=== PATIENT | female | born 1940 | race Caucasian/White ===

== ENCOUNTER 2020-06-08 00:39 | Inpatient (IN) | payer MEDICARE ==
[2020-06-08] MEDS ORDERED: MORPHINE SULFATE 4 MG/ML SYRINGE IM STA (00:59)
--- NOTE | 2020-06-08 01:07 | ED ---
Fall HPI - General Chief Complaint: Fall Stated Complaint: Fall Time Seen by Provider: 06/08/20 00:44 Source: EMS Mode of arrival: EMS Limitations: altered mental status - History of Present Illness Initial Comments: This patient is a 79-year-old woman who reportedly has history of dementia, transfer from her nursing facility after she reportedly had a fall. The patient is not able to provide any history due to what appears to be dementia. She reportedly had x-ray of the left femur at the retirement which showed a femoral neck fracture. Complaint: fall -: unknown When Fall Occurred: unsure Place Fall Occurred: retirement/SNF - Related Data Home Medications Medication Instructions Recorded Confirmed No Known Home Medications 12/17/14 12/17/14 Allergies Allergy/AdvReac Type Severity Reaction Status Date / Time No Known Allergies Allergy Verified 06/08/20 00:48 Review of Systems ROS Statement: Those systems with pertinent positive or pertinent negative responses have been documented in the HPI. ROS Other: All systems not noted in ROS Statement are negative. Constitutional: Denies: fever Respiratory: Denies: cough, dyspnea Gastrointestinal: Denies: vomiting Past Medical History Past Medical History: Dementia, Hyperlipidemia History of Any Multi-Drug Resistant Organisms: None Reported Additional Past Surgical History / Comment(s): MITRAL VALVE REPLACED Past Psychological History: No Psychological Hx Reported Smoking Status: Never smoker Past Alcohol Use History: None Reported Past Drug Use History: None Reported General Exam Limitations: no limitations General appearance: alert, in no apparent distress Head exam: Present: atraumatic, normocephalic Eye exam: Present: normal appearance, PERRL, EOMI. Absent: scleral icterus, conjunctival injection Neck exam: Present: normal inspection, full ROM. Absent: tenderness Respiratory exam: Present: normal lung sounds bilaterally. Absent: respiratory distress, wheezes, rales, rhonchi, stridor Cardiovascular Exam: Present: regular rate, normal rhythm, normal heart sounds. Absent: systolic murmur, diastolic murmur, rubs, gallop GI/Abdominal exam: Present: soft. Absent: distended, tenderness, guarding, rebound Extremities exam: Present: normal capillary refill. Absent: full ROM, pedal edema, calf tenderness Back exam: Present: normal inspection. Absent: CVA tenderness (R), CVA tenderness (L), vertebral tenderness Neurological exam: Present: alert Skin exam: Present: warm, dry, intact, normal color. Absent: rash Course Vital Signs 06/08/20 00:41 Temperature 97.8 F Pulse Rate 76 Respiratory 20 Rate Blood Pressure 144/93 O2 Sat by Pulse 97 Oximetry Medical Decision Making - EKG Data -: EKG Interpreted by Me EKG shows normal: axis (Normal), intervals (Normal), QRS complexes Rate: normal (Rate 77 bpm) Interpretation: nonspecific ST-T wave changes, other (The underlying rhythm appears to be trigeminy rate proximal 77 bpm) Disposition Clinical Impression: Fall, Closed left femoral fracture Disposition: ADMITTED IP TO THIS HOSP Condition: Fair Is patient prescribed a controlled substance at d/c from ED?: No Referrals: Earl Juan MD [Primary Care Provider] - 1-2 days
--- NOTE | 2020-06-08 01:28 | XR ---
EXAM: XR Chest, 1 View CLINICAL HISTORY: Fall TECHNIQUE: Frontal view of the chest. COMPARISON: Chest x-ray dated 12/17/2014 FINDINGS: Lungs: Hyperinflated lungs suggesting COPD. Pleural space: Unremarkable. Heart: Heart is prominent. Mediastinum: Unremarkable. Bones/joints: Unremarkable. Tubes, lines and devices: Single lead cardiac pacemaker/AICD. IMPRESSION: No acute findings in the chest.
--- NOTE | 2020-06-08 01:29 | XR ---
EXAM: XR Left Hip With Pelvis When Performed, 2 or 3 Views CLINICAL HISTORY: ITS.REASON XR Reason: fall TECHNIQUE: Two or three views of the left hip with pelvis when performed. COMPARISON: No relevant prior studies available. FINDINGS: Bones/joints: Acute impacted fracture of the left femoral neck. Soft tissues: Unremarkable. IMPRESSION: Acute impacted fracture of the left femoral neck.
[2020-06-08] MEDS ORDERED: NALOXONE 0.4 MG/ML 1 ML VIAL IV PRN ×2 (01:50→13:32)
[2020-06-08] MEDS ORDERED: MORPHINE SULFATE 4 MG/ML SYRINGE IV PRN (01:50)
[2020-06-08] MEDS ORDERED: ONDANSETRON 4 MG/2 ML VIAL IVP PRN (01:50)
[2020-06-08 02:04] LABS: Basophils % (A) 0 %; Eosinophils % (A) 0 %; HCT 41.3 % (34.0-46.0); HGB 13.8 gm/dL (11.4-16.0); Lymphocytes # (A) 1.4 k/uL (1.0-4.8); Lymphocytes % (A) 8 %; MCH 32.9 pg (25.0-35.0); MCHC 33.3 g/dL (31.0-37.0); MCV 98.5 fL (80.0-100.0); Mean Platelet Volume 8.6; Monocytes # (A) 0.7 k/uL (0-1.0); Monocytes % (A) 5 %; Neutrophils # (A) 13.9 k/uL (1.3-7.7); Neutrophils % (A) 86 %; Platelet Count 207 k/uL (150-450); RBC 4.19 m/uL (3.80-5.40); RDW 13.6 % (11.5-15.5); WBC 16.1 k/uL (3.8-10.6)
[2020-06-08] MEDS: FAMOTIDINE 20 MG/2 ML VIAL IV SCH ×2 (02:16→13:20)
[2020-06-08] MEDS: SODIUM CHLORIDE 0.9% 1,000 ML IV SCH ×4 (02:16→21:50)
[2020-06-08 02:17] LABS: Partial Thromboplastin Time 23.8 sec (22.0-30.0); Prothrombin Time 11.1 sec (9.0-12.0)
[2020-06-08 02:25] LABS: Calcium 9.3 mg/dL (8.4-10.2); Potassium 4.1 mmol/L (3.5-5.1)
--- NOTE | 2020-06-08 09:24 | P.HPOR ---
History of Present Illness H&P Date: 06/08/20 This is a 79 year-old female who is admitted for left hip fracture. Patient is seen and evaluated at bedside today. Patient's family is at bedside to give history as patient has dementia. Patient currently resides a [facility]. Per family, the patient normally uses a walker to ambulate. It is unsure how the patient fell. Per family, the patient has a pace maker and has a history of DVT/PE. The patient is not on any anti-coagulation. Patient's past medical history is significant for hyperlipidemia. Review of Systems ROS unobtainable: due to mental status Past Medical History Past Medical History: Dementia, Hyperlipidemia History of Any Multi-Drug Resistant Organisms: None Reported Additional Past Surgical History / Comment(s): MITRAL VALVE REPLACED Past Anesthesia/Blood Transfusion Reactions: No Reported Reaction Past Psychological History: No Psychological Hx Reported Smoking Status: Never smoker Past Alcohol Use History: None Reported Past Drug Use History: None Reported Medications and Allergies Home Medications Medication Instructions Recorded Confirmed Type Acetaminophen Tab [Tylenol Tab] 1,000 mg PO ONCE 06/08/20 06/08/20 History Aspirin EC [Ecotrin Low Dose] 81 mg PO HS 06/08/20 06/08/20 History Escitalopram [Lexapro] 5 mg PO DAILY 06/08/20 06/08/20 History Fiber Lax 625 mg PO BID 06/08/20 06/08/20 History Ibuprofen [Motrin Ib] 400 mg PO DAILY PRN 06/08/20 06/08/20 History LORazepam [Ativan] 0.5 mg PO BID 06/08/20 06/08/20 History Lansoprazole [Prevacid] 15 mg PO DAILY@0700 06/08/20 06/08/20 History Magnesium Hydroxide [Milk of 2,400 ml PO Q72H PRN 06/08/20 06/08/20 History Magnesia] QUEtiapine [SEROquel] 100 mg PO HS@199906/08/20 06/08/20 History Sennosides [Senna] 17.2 mg PO BID 06/08/20 06/08/20 History bisacodyL [Bisacodyl] 10 mg RECTAL DAILY PRN 06/08/20 06/08/20 History traZODone HCL 50 mg PO HS@199906/08/20 06/08/20 History Allergies Allergy/AdvReac Type Severity Reaction Status Date / Time No Known Allergies Allergy Verified 06/08/20 07:32 Physical Examination On exam patient is resting comfortably in bed in no acute distress. Patient has a history of dementia. The left lower extremity is shortened and externally rotated. Skin is intact. Calf is soft and nontender to palpation. Dorsalis pedis pulse is 2+. Exams of the right lower extremity, bilateral upper extremities, head and neck are within normal limits. Sensation intact. Neurovascular status and circulatory status are intact. Results X-rays of the left hip and pelvis are reviewed and reveal left femoral neck fracture. - Labs Labs: Abnormal Lab Results - Last 24 Hours (Table) 06/08/20 06/08/20 Range/Units 01:43 01:43 WBC 16.1 H (3.8-10.6) k/uL Neutrophils # 13.9 H (1.3-7.7) k/uL BUN 35 H (7-17) mg/dL Creatinine 1.11 H (0.52-1.04) mg/dL Glucose 122 H (74-99) mg/dL H & H 06/08/20 Range/Units 01:43 Hgb 13.8 (11.4-16.0) gm/dL Hct 41.3 (34.0-46.0) % Coagulation 06/08/20 Range/Units 01:43 INR 1.0 (<1.2) Result Diagrams: 06/08/20 01:43 06/08/20 01:43 Assessment and Plan (1) Closed left femoral fracture Current Visit: Yes Status: Acute Code(s): S72.92XA - UNSP FRACTURE OF LEFT FEMUR, INIT ENCNTR FOR CLOSED FRACTURE SNOMED Code(s): 56202089 (2) Fall Current Visit: Yes Status: Acute Code(s): W19.XXXA - UNSPECIFIED FALL, INITIAL ENCOUNTER SNOMED Code(s): 7231136 Plan: 1. Patient is to be NPO. 2. Continue pain control. 3. Appreciate input from medicine. 4. Planning for left hip hemiarthroplasty later today pending medical clearance and consent.
[2020-06-08 13:08] LABS: Appearance,Urine Cloudy (Clear); Bacteria,Urine Few /hpf; Bilirubin,Urine Negative (Negative); Blood,Urine Trace (Negative); Color,Urine Yellow; Glucose,Urine (UA) Negative (Negative); Ketones,Urine 1+ (Negative); Leukocyte Esterase,Urine Large (Negative); Mucus,Urine Rare /hpf; Nitrite,Urine Positive (Negative); Protein,Urine Trace (Negative); RBC,Urine 11 /hpf (0-5); Specific Gravity,Urine 1.019 (1.001-1.035); Squamous Epithelial Cell,Urine <1 /hpf (0-4); Urobilinogen,Urine <2.0 mg/dL (<2.0); WBC,Urine >182 /hpf (0-5)
[2020-06-08] MEDS ORDERED: HYDROcodone/APAP 5-325MG 1 EACH TAB PO PRN ×2 (13:32)
[2020-06-08] MEDS ORDERED: MAGNESIUM HYDROXIDE 2,400 MG/10 ML CUP PO PRN (13:32)
[2020-06-08] MEDS ORDERED: HYDROmorphone 0.5 MG/0.5 ML SYRINGE IVP PRN ×2 (13:32)
[2020-06-08] MEDS ORDERED: HYDROmorphone 0.2 MG/1 ML SYRINGE IVP PRN (13:32)
--- NOTE | 2020-06-08 13:59 | P.CRDCN ---
History of Present Illness Consult date: 06/08/20 History of present illness: CHIEF COMPLAINT: Cardiac clearance HISTORY OF PRESENT ILLNESS: This is a 79-year-old female with a past medical history significant for TIA, pulmonary emboli, COPD, dementia, mitral valve repair, and pacemaker insertion. Patient follows in the office with Dr. Feliz. We have been asked to see the patient in consultation for cardiac clearance. Patient is admitted to the hospital secondary to a left hip fracture. She is scheduled to undergo surgical intervention this afternoon. Patient examined this afternoon at the bedside. Patient's family member present and providing majority of HPI as patient has advanced dementia. Family member states that patient had a mitral valve repair more than 10 years ago. She states patient does not have a history of myocardial infarction, stenting or open heart surgery, or congestive heart failure. She states that the patient has not had any recent complaints of chest pain or shortness of breath. DIAGNOSTICS: EKG reveals sinus rhythm with PVCs Chest xray negative for acute process Laboratory data: WBC 16.1. Hemoglobin 13.8. Platelet count 207. Sodium 141. Potassium 4.1. BUN 35. Creatinine 1.11. Troponin negative 1. Current home cardiac medications include aspirin 81 mg daily REVIEW OF SYSTEMS: Unable to obtain the review of systems secondary to altered mental status PHYSICAL EXAM: VITAL SIGNS: Reviewed. GENERAL: Well-developed in no acute distress. HEENT: Head is normocephalic. Pupils are equal, round. Sclerae anicteric. Mucous membranes of the mouth are moist. Neck supple. No JVD or thyromegaly LUNGS: Respirations even and unlabored. Lungs essentially clear to auscultation bilaterally. HEART: Regular rate and rhythm. S1 and S2 heard. ABDOMEN: Soft. Nondistended. Nontender. EXTREMITIES: No clubbing or cyanosis. Peripheral pulses intact. 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 However they are no absolute contraindications to undergo surgery this afternoon. Recommend optimal blood pressure control and cautious fluid administration Further recommendations pending patient's course Nurse practitioner note has been reviewed by physician. Signing provider agrees with the documented findings, assessment, and plan of care. Past Medical History Past Medical History: COPD, Dementia, Deep Vein Thrombosis (DVT), Hyperlipidemia, Pulmonary Embolus (PE), Renal Disease Additional Past Medical History / Comment(s): [facility], never had symptoms. History of Any Multi-Drug Resistant Organisms: None Reported Past Surgical History: Pacemaker Additional Past Surgical History / Comment(s): MITRAL VALVE Repair, Past Anesthesia/Blood Transfusion Reactions: No Reported Reaction Type of Cardiac Device: Permanent Pacemaker Device Placement Date:: daughter is guessing "about 4 years ago" Past Psychological History: No Psychological Hx Reported Smoking Status: Never smoker Past Alcohol Use History: None Reported Past Drug Use History: None Reported Medications and Allergies Home Medications Medication Instructions Recorded Confirmed Type Acetaminophen Tab [Tylenol Tab] 1,000 mg PO ONCE 06/08/20 06/08/20 History Aspirin EC [Ecotrin Low Dose] 81 mg PO HS 06/08/20 06/08/20 History Escitalopram [Lexapro] 5 mg PO DAILY 06/08/20 06/08/20 History Fiber Lax 625 mg PO BID 06/08/20 06/08/20 History Ibuprofen [Motrin Ib] 400 mg PO DAILY PRN 06/08/20 06/08/20 History LORazepam [Ativan] 0.5 mg PO BID 06/08/20 06/08/20 History Lansoprazole [Prevacid] 15 mg PO DAILY@0700 06/08/20 06/08/20 History Magnesium Hydroxide [Milk of 2,400 ml PO Q72H PRN 06/08/20 06/08/20 History Magnesia] QUEtiapine [SEROquel] 100 mg PO HS@199906/08/20 06/08/20 History Sennosides [Senna] 17.2 mg PO BID 06/08/20 06/08/20 History bisacodyL [Bisacodyl] 10 mg RECTAL DAILY PRN 06/08/20 06/08/20 History traZODone HCL 50 mg PO HS@199906/08/20 06/08/20 History Allergies Allergy/AdvReac Type Severity Reaction Status Date / Time No Known Allergies Allergy Verified 06/08/20 07:32 Physical Exam Vitals: Vital Signs Temp Pulse Pulse Resp BP BP Pulse Ox 06/08/20 07:48 97.1 F L 80 16 163/97 92 L 06/08/20 02:45 97.1 F L 79 18 160/98 93 L 06/08/20 02:20 97.9 F 65 20 147/92 97 06/08/20 00:41 97.8 F 76 20 144/93 97 Intake and Output 06/07/20 06/08/20 06/08/20 22:59 06:59 14:59 Other: # Voids 1 Weight 79.379 kg Results 06/08/20 01:43 06/08/20 01:43 Cardiac Enzymes 06/08/20 Range/Units 01:43 Troponin I 0.016 (0.000-0.034) ng/mL Coagulation 06/08/20 Range/Units 01:43 PT 11.1 (9.0-12.0) sec APTT 23.8 (22.0-30.0) sec CBC 06/08/20 Range/Units 01:43 WBC 16.1 H (3.8-10.6) k/uL RBC 4.19 (3.80-5.40) m/uL Hgb 13.8 (11.4-16.0) gm/dL Hct 41.3 (34.0-46.0) % Plt Count 207 (150-450) k/uL Comprehensive Metabolic Panel 06/08/20 Range/Units 01:43 Sodium 141 (137-145) mmol/L Potassium 4.1 (3.5-5.1) mmol/L Chloride 105 (98-107) mmol/L Carbon Dioxide 27 (22-30) mmol/L BUN 35 H (7-17) mg/dL Creatinine 1.11 H (0.52-1.04) mg/dL Glucose 122 H (74-99) mg/dL Calcium 9.3 (8.4-10.2) mg/dL Current Medications Generic Name Dose Route Start Last Admin Trade Name Freq PRN Reason Stop Dose Admin Famotidine 20 mg 06/08/20 02:00 06/08/20 13:20 Famotidine 20 Mg/2 Ml Vial IV 20 mg Q12H CHARMAINE Administration Sodium Chloride 1,000 mls @ 125 mls/hr 06/08/20 02:00 06/08/20 10:10 Saline 0.9% IV 125 mls/hr .Q8H CHARMAINE Administration Morphine Sulfate 4 mg 06/08/20 01:50 Morphine Sulfate 4 Mg/Ml Syringe IV Q4HR PRN Severe Pain Naloxone HCl 0.2 mg 06/08/20 01:50 Naloxone 0.4 Mg/Ml 1 Ml Vial IV Q2M PRN Opioid Reversal Ondansetron HCl 4 mg 06/08/20 01:50 Ondansetron 4 Mg/2 Ml Vial IVP Q8HR PRN Nausea And Vomiting Intake and Output 06/07/20 06/08/20 06/08/20 22:59 06:59 14:59 Other: # Voids 1 Weight 79.379 kg 06/08/20 01:43 06/08/20 01:43
[2020-06-08] MEDS ORDERED: IV FLUID CONTINUATION 1,000 ML IV ONE (14:05)
--- NOTE | 2020-06-08 15:11 | P.PN ---
Progress Note - Text Progress Note Date: 06/08/20 The patient will be full code during surgery, and then return to her status after surgery
[2020-06-08] MEDS ORDERED: ROCURONIUM 10 MG/ML (10 ML VIAL) IV ONE (15:13)
[2020-06-08] MEDS ORDERED: SUCCINYLCHOLINE CHLORIDE 100 MG/5 ML SYR IV ONE (15:13)
[2020-06-08] MEDS ORDERED: fentaNYL (PF) 50 MCG/ML 2 ML AMP ONE (15:13)
[2020-06-08] MEDS ORDERED: PROPOFOL 10 MG/ML 20 ML VIAL IV ONE (15:13)
[2020-06-08] MEDS ORDERED: GLYCOPYRROLATE 0.2 MG/ML 2 ML VIAL ONE (15:13)
[2020-06-08] MEDS ORDERED: DEXAMETHASONE SOD PHOSPHATE 10 MG/ML 1 ML VIAL ONE (15:13)
[2020-06-08] MEDS ORDERED: NEOSTIGMINE 1 MG/ML 10 ML VIAL ONE (15:13)
[2020-06-08] MEDS ORDERED: ceFAZolin 3,000 MG in SODIUM CHLORIDE 0.9% IRRIGATIO 3,000 ML IRRIGATION ONE (15:56)
--- NOTE | 2020-06-08 16:23 | P.OP ---
Date of Procedure: 06/08/20 Preoperative Diagnosis: Subcapital fracture left hip Postoperative Diagnosis: Subcapital fracture left hip Procedure(s) Performed: Left hip hemiarthroplasty Implants: Wall and nephew Polarstem size 2 standard Wall & Nephew tandem unipolar,43 mm Wall & Nephew tandem unipolar 12/14 taper sleeve, +0 mm All components were press-fit. Anesthesia: spinal Surgeon: Chris Campbell Hammer Fitter #1: Dominique Fitzgerald Estimated Blood Loss (ml): 50 Pathology: other (Femoral head) Condition: stable Disposition: PACU Indications for Procedure: This is a 79-year-old female resides an extended care facility and fell yesterday. She sustained a subcapital displaced fracture of her left hip. After discussing the surgical nonsurgical treatment options with her daughter at length, I recommended a left hip hemiarthroplasty and informed consent was obtained. Operative Findings: The operative findings are consistent with a subcapital fracture of the left hip Description of Procedure: Patient was seen and evaluated in the preoperative area, consent was reviewed and the operative site was marked with a skin marker. Patient was then brought to the operating room and given 2 g of Ancef intravenously. A spinal anesthetic was administered by the anesthesia department. Patient was then placed in a lateral decubitus position and held with a Montral hip positioner. The bony prominences were well-padded and an axillary roll was placed. The hip was then prepped and draped in the usual sterile fashion. A universal timeout was then performed which confirmed the patient's name, surgical site, ALLERGIES, and procedure. A standard anterolateral approach the hip was performed. Skin and subcutaneous tissues were sharply incised with an incision centered over the tip of the greater trochanter. The incision was carefully dissected down to the fascia. The fascia was then split in line with skin incision and a Charnley retractor was gently placed. The abductors were then identified, and the anterior one third of the abductors were released off the trochanter and one large sleeve. The fracture hematoma was evacuated and the proximal femur was exposed by externally rotating the femur. The fracture site was readily visualized. Next, using an osteotomy guide, the proximal femur was osteotomized at the appropriate level of the above the lesser trochanter. This bone was then removed. Attention was then turned to the femoral head. Using a corkscrew, the femoral head was removed from the acetabulum without incident. The acetabulum was inspected, and found to have no significant arthrosis. Femoral head was then measured. Attention was then redirected to the femur. Proximal femur was re-exposed and a box osteotome was used to lateralize the proximal femur. A sail finisher hand was then used to locate the femoral canal. Sequential broaching was then performed to the appropriate size. The calcar was then planed and trial head and neck were placed. The hip was then gently reduced. Leg lengths were checked and found to be equal. Hip was then taken through a full range of motion was stable throughout. The hip was then gently dislocated with the aid of a bone hook. The trial head and neck were then removed. The femoral broach was then inspected and found to have a secure fit. The broach was then removed. The hip was then copiously irrigated with antibiotic solution with a pulse lavage. Components were then opened and the femoral stem was then impacted into the proximal femur. The trunnion was cleaned and dried, and the femoral head and neck were then impacted. Hip was again gently reduced. Again leg lengths were checked and found to be equal, and the hip was taken through a full range of motion and found to be stable. The hip was again irrigated with pulsatile lavage, then followed by the Irrrisept solution. The abductors were then repaired through drill holes to the bone to the greater trochanter, utilizing #5 Ethibond suture. Next the fascia was repaired with #2 strata fix suture. The subcutaneous tissue was then repaired with 3-0 Vicryl. The subcuticular tissue was then repaired with 3-0 strata fix suture. Skin was then closed with Dermabond tape. A sterile dressing was then applied and the patient was transported to the recovery room in stable condition. Hammer Fitter JOYA Garcia was required due to the complexity of surgery the need for skilled surgical instruments inspector. She assisted with positioning the patient, draping the patient, retraction during the surgery, and closure of the wound.
[2020-06-08] MEDS ORDERED: LACTATED RINGERS 1,000 ML IV ONE (16:24)
--- NOTE | 2020-06-08 17:52 | XR ---
EXAMINATION TYPE: XR Hip Limited LT DATE OF EXAM: 06/08/2020 COMPARISON: Today HISTORY: Postop TECHNIQUE: FINDINGS: A single view shows a new left hip prosthesis. Components are in anatomic position. IMPRESSION: No complicating process seen.
--- NOTE | 2020-06-08 18:57 | CONS ---
CONSULTATION Cardiac clearance. This is a 79-year-old with a history of TIA, pulmonary emboli, COPD, dementia, mitral valve repair, pacemaker insertion, follows with Dr. Feliz in the office cardiac clearance. EKG showed multiple PVCs, at which time Cardiology needed to see her for clearance. She does not have any history of myocardial infarction, stenting or open heart surgery, congestive heart failure. No recent complaints of chest pain or shortness of breath. EKG shows sinus rhythm, PVCs. LABS: White count 16.1, hemoglobin 13.8, platelets 207. Sodium 141, potassium 4.1, creatinine 1.11. Troponins are negative. She takes aspirin at home. Fourteen-point review of systems otherwise negative. HEENT: Normocephalic, atraumatic. No acute distress. Lungs are clear. HEART: S1, S2. Abdomen is soft, nontender. EXTREMITIES: No cyanosis, clubbing, edema. NEUROLOGIC: Sleepy, fatigued. ASSESSMENT: 1. Status post left hip fracture. 2. Advanced dementia. 3. Bradycardia and intermittent episodes of third-degree heart block, status post single-chamber pacemaker insertion in 2014. 4. History of pulmonary embolism. 5. Transient ischemic attack. 6. Mitral valve repair. Pacemaker interrogation reviewed and unremarkable. Per Cardiology, echo is going to be done. Moderate to high risk for surgery. No absolute contraindication. She is going to go for surgery apparently today. Please see further orders. Await postoperative conditions. MMODL / IJN: [id number] /
[2020-06-08 20:41] LABS: Basophils % (A) 0 %; Eosinophils # (A) 0.1 k/uL (0-0.7); Eosinophils % (A) 1 %; HCT 43.8 % (34.0-46.0); HGB 14.2 gm/dL (11.4-16.0); Lymphocytes # (A) 0.5 k/uL (1.0-4.8); Lymphocytes % (A) 3 %; MCH 32.4 pg (25.0-35.0); MCHC 32.4 g/dL (31.0-37.0); MCV 99.8 fL (80.0-100.0); Mean Platelet Volume 8.3; Monocytes # (A) 0.2 k/uL (0-1.0); Monocytes % (A) 1 %; Neutrophils # (A) 16.7 k/uL (1.3-7.7); Neutrophils % (A) 95 %; Platelet Count 179 k/uL (150-450); RBC 4.39 m/uL (3.80-5.40); RDW 13.6 % (11.5-15.5); WBC 17.6 k/uL (3.8-10.6)
[2020-06-08] MEDS: SENNOSIDES-DOCUSATE SODIUM 1 EACH TAB PO SCH (21:45)
[2020-06-09] MEDS: SODIUM CHLORIDE 0.9% 1,000 ML IV SCH ×3 (04:35→15:40)
--- NOTE | 2020-06-09 08:10 | P.PN ---
Subjective Progress Note Date: 06/09/20 This is a 79-year-old female who is status post left hip hemiarthroplasty. This is postoperative day #1 and patient is seen and evaluated at bedside. Patient has a history of dementia and is unable to answer questions. No family present in the room. No acute events overnight per nursing. Objective - Vital Signs Vital signs: Vital Signs Temp 99.0 F 06/09/20 07:33 Pulse 76 06/09/20 07:33 Resp 16 06/09/20 07:33 BP 158/81 06/09/20 07:33 Pulse Ox 98 06/09/20 07:33 Intake & Output 06/08/20 06/09/20 06/09/20 18:59 06:59 18:59 Intake Total 1351 830 Output Total 60 400 Balance 1291 430 Weight 79.379 kg Intake: IV 1351 Intake, IV Titration 830 Amount Sodium Chloride 0.9% 1, 780 000 ml @ 65 mls/hr IV . [id number] CHARMAINE Rx#:[id number] ceFAZolin 2 gm In Sodium 50 Chloride 0.9% 50 ml @ 100 mls/hr IVPB Q8HR CHARMAINE Rx# :[id number] Oral 0 Output: Urine 10 400 Estimated Blood Loss 50 - Exam Vital signs are stable. Patient is in no acute distress. Calf is soft and nontender to palpation. Abductor pillow in place. Dressing is clean, dry, and intact. Neurovascular status and circulatory status are intact. - Labs CBC & Chem 7: 06/08/20 20:32 06/08/20 01:43 Labs: Abnormal Lab Results - Last 24 Hours (Table) 06/08/20 06/08/20 Range/Units 12:53 20:32 WBC 17.6 H (3.8-10.6) k/uL Neutrophils # 16.7 H (1.3-7.7) k/uL Lymphocytes # 0.5 L (1.0-4.8) k/uL Urine Appearance Cloudy H (Clear) Urine Protein Trace H (Negative) Urine Ketones 1+ H (Negative) Urine Blood Trace H (Negative) Urine Nitrite Positive H (Negative) Ur Leukocyte Esterase Large H (Negative) Urine RBC 11 H (0-5) /hpf Urine WBC >182 H (0-5) /hpf Urine Bacteria Few H (None) /hpf Urine Mucus Rare H (None) /hpf Microbiology - Last 24 Hours (Table) 06/08/20 12:53 Urine Culture - Preliminary Urine,Clean Catch Assessment and Plan (1) Closed left femoral fracture Current Visit: Yes Status: Acute Code(s): S72.92XA - UNSP FRACTURE OF LEFT FEMUR, INIT ENCNTR FOR CLOSED FRACTURE SNOMED Code(s): 92855516 (2) Fall Current Visit: Yes Status: Acute Code(s): W19.XXXA - UNSPECIFIED FALL, INITIAL ENCOUNTER SNOMED Code(s): 0590446 (3) S/P hip hemiarthroplasty Current Visit: Yes Status: Acute Code(s): Z96.649 - PRESENCE OF UNSPECIFIED ARTIFICIAL HIP JOINT SNOMED Code(s): 257751891 Plan: Continue routine postop care and pain control. Continue hip dislocation precautions and use of abductor pillow for 6 weeks. Continue anticoagulation with Eliquis. Weightbearing as tolerated with a walker. Leave dressing in place for 10 days. Appreciate input from medicine. Anticipate discharge back to [facility] when cleared medically.
[2020-06-09] MEDS ORDERED: traMADol 50 MG TAB PO PRN ×2 (08:12)
[2020-06-09] MEDS: APIXABAN 2.5 MG TABLET PO SCH ×2 (08:23→20:48)
[2020-06-09] MEDS ORDERED: ASPIRIN 81 MG PO SCH (09:00)
--- NOTE | 2020-06-09 10:08 | P.PN ---
Subjective Progress Note Date: 06/09/20 CHIEF COMPLAINT: Cardiac clearance HISTORY OF PRESENT ILLNESS: 06/08/2020 This is a 79-year-old female with a past medical history significant for TIA, pulmonary emboli, COPD, dementia, mitral valve repair, and pacemaker insertion. Patient follows in the office with Dr. Feliz. We have been asked to see the patient in consultation for cardiac clearance. Patient is admitted to the hospital secondary to a left hip fracture. She is scheduled to undergo surgical intervention this afternoon. Patient examined this afternoon at the bedside. Patient's family member present and providing majority of HPI as patient has advanced dementia. Family member states that patient had a mitral valve repair more than 10 years ago. She states patient does not have a history of myocardial infarction, stenting or open heart surgery, or congestive heart failure. She states that the patient has not had any recent complaints of chest pain or shortness of breath. 06/09/2020 Patient is s/p left hemiarthroplasty by Dr. Campbell. Postoperative day #1. Patient examined this morning at the bedside. Patient appears more awake today compared to yesterday. Patient is resting comfortably in bed. Nursing reports that the patient did well overnight without any issues. Blood pressure 158/81 this morning. Heart rate in the 70s. She is on 3 L nasal cannula with oxygen saturations greater than 92%. PHYSICAL EXAM: VITAL SIGNS: Reviewed. GENERAL: Well-developed in no acute distress. HEENT: Head is normocephalic. Pupils are equal, round. Sclerae anicteric. Mucous membranes of the mouth are moist. Neck supple. No JVD or thyromegaly LUNGS: Respirations even and unlabored. Lungs essentially clear to auscultation bilaterally. HEART: Regular rate and rhythm. S1 and S2 heard. EXTREMITIES: No clubbing or cyanosis. Peripheral pulses intact. No lower extremity edema. Dressing to left hip clean dry and intact. ASSESSMENT: Left hip fracture, status post left hemiarthroplasty Advanced dementia History of bradycardia and intermittent episodes of third-degree heart block, status post single chamber pacemaker insertion, 2014 History of pulmonary embolism History of TIA History of mitral valve repair PLAN: 2-D echo ordered. Await results Patient has been started on anticoagulation with Eliquis per orthopedics Patient is currently stable from a cardiac perspective for discharge when cleared by internal medicine and orthopedics Nurse practitioner note has been reviewed by physician. Signing provider agrees with the documented findings, assessment, and plan of care. Objective - Vital Signs Vital signs: Vital Signs Temp 99.0 F 06/09/20 07:33 Pulse 76 06/09/20 07:33 Resp 16 06/09/20 07:33 BP 158/81 06/09/20 07:33 Pulse Ox 98 06/09/20 07:33 Intake & Output 06/08/20 06/09/20 06/09/20 18:59 06:59 18:59 Intake Total 1351 830 Output Total 60 400 Balance 1291 430 Weight 79.379 kg Intake: IV 1351 Intake, IV Titration 830 Amount Sodium Chloride 0.9% 1, 780 000 ml @ 65 mls/hr IV . [id number] CHARMAINE Rx#:[id number] ceFAZolin 2 gm In Sodium 50 Chloride 0.9% 50 ml @ 100 mls/hr IVPB Q8HR CHARMAINE Rx# :[id number] Oral 0 Output: Urine 10 400 Estimated Blood Loss 50 Other: Voiding Method Indwelling Catheter - Labs CBC & Chem 7: 06/08/20 20:32 06/08/20 01:43 Labs: Abnormal Lab Results - Last 24 Hours (Table) 06/08/20 06/08/20 Range/Units 12:53 20:32 WBC 17.6 H (3.8-10.6) k/uL Neutrophils # 16.7 H (1.3-7.7) k/uL Lymphocytes # 0.5 L (1.0-4.8) k/uL Urine Appearance Cloudy H (Clear) Urine Protein Trace H (Negative) Urine Ketones 1+ H (Negative) Urine Blood Trace H (Negative) Urine Nitrite Positive H (Negative) Ur Leukocyte Esterase Large H (Negative) Urine RBC 11 H (0-5) /hpf Urine WBC >182 H (0-5) /hpf Urine Bacteria Few H (None) /hpf Urine Mucus Rare H (None) /hpf Microbiology - Last 24 Hours (Table) 06/08/20 12:53 Urine Culture - Preliminary Urine,Clean Catch
[2020-06-09] MEDS: ESCITALOPRAM 5 MG TAB PO SCH (11:28)
[2020-06-09] MEDS: SENNOSIDES 8.6 MG TAB PO SCH ×2 (11:39→20:57)
[2020-06-09] MEDS: PANTOPRAZOLE 40 MG TABLET PO SCH (11:39)
--- NOTE | 2020-06-09 11:48 | ECHOF ---
Referral Reason:LV function MEASUREMENTS -------- HEIGHT: 170.2 cm WEIGHT: 79.4 kg BP: RVIDd: 2.3 cm (< 3.3) IVSd: 1.0 cm (0.6 - 1.1) LVIDd: 2.9 cm (3.9 - 5.3) LVPWd: 1.5 cm (0.6 - 1.1) IVSs: 1.2 cm LVIDs: 2.7 cm LVPWs: 1.7 cm Ao Diam: 3.3 cm (2.0 - 3.7) AV Cusp: 1.9 cm (1.5 - 2.6) MV EXCURSION: 14.967 mm (> 18.000) MV EF SLOPE: 60 mm/s (70 - 150) RAP: 5.00 mmHg RVSP: 49.64 mmHg FINDINGS -------- Sinus rhythm. This was a technically difficult study with suboptimal views. Limited Study: no apicals pt has dem entia. LV size, wall thickness and systolic function are normal, with an EF greater than 55%. The left mary tricular size is normal. The right ventricle is normal in size. The left atrial size is normal. The right atrial size is normal. There is mild aortic valve sclerosis. There is mild aortic regurgitation. Mild mitral regurgitation is present. Mitral ring annulloplasty is in place. Moderate tricuspid regurgitation present. There is mild to moderate pulmonary hypertension. The r ight ventricular systolic pressure, as measured by Doppler, is 49.64mmHg. The pulmonic valve was not well visualized. The aortic root size is normal. There is no pericardial effusion. CONCLUSIONS -------- 1. This was a technically difficult study with suboptimal views. 2. Limited Study: no apicals pt has dementia. 3. LV size, wall thickness and systolic function are normal, with an EF greater than 55%. 4. The left atrial size is normal. 5. There is mild aortic valve sclerosis. 6. There is mild aortic regurgitation. 7. Mild mitral regurgitation is present. 8. Mitral ring annulloplasty is in place. 9. Moderate tricuspid regurgitation present. 10. There is mild to moderate pulmonary hypertension. 11. There is no pericardial effusion. NEWS CLIPPING CUTTER: Samantha Caruso RDCS
[2020-06-09] MEDS ORDERED: FAMOTIDINE 20 MG/2 ML VIAL IV SCH (14:00)
[2020-06-09] MEDS: LORazepam 0.5 MG TAB PO SCH (17:44)
--- NOTE | 2020-06-09 18:47 | PN ---
PROGRESS NOTE DATE OF SERVICE: 06/09/2020 This patient is a 79-year-old white female, status post left hemiarthroscopy by Dr. Campbell, day 1. She is more alert today, resting comfortably. She did well overnight. Blood pressure 150s over 80s, heart rate 60s to 70s, 3-liter oxygen saturation 92%. She is thin, cachectic. No acute distress. Lungs are clear. Heart: S1, S2. EXTREMITIES: No cyanosis, clubbing, edema. ASSESSMENT: 1. Status post left hip fracture, status post hemiarthroscopy. 2. Advanced dementia. 3. History of bradycardia. 4. Pacemaker insertion. 5. History of pulmonary embolism. 6. Transient ischemic attack. 7. Mitral valve repair. Awaiting echo report. Started on Eliquis, PT/OT. Vital signs are reviewed. She is up to 98%. MMODL / IJN: [id number] /
[2020-06-09] MEDS: SENNOSIDES-DOCUSATE SODIUM 1 EACH TAB PO SCH (20:48)
[2020-06-09] MEDS: traZODone HCL 50 MG TAB PO SCH (20:48)
[2020-06-09] MEDS: QUEtiapine 100 MG TAB PO SCH (20:48)
[2020-06-09] MEDS ORDERED: LORazepam 0.5 MG TAB PO SCH (21:00)
[2020-06-10] MEDS: LORazepam 0.5 MG TAB PO SCH ×3 (02:14→20:34)
[2020-06-10 05:13] LABS: Basophils % (A) 0 %; Eosinophils # (A) 0.5 k/uL (0-0.7); Eosinophils % (A) 4 %; HCT 37.1 % (34.0-46.0); HGB 12.3 gm/dL (11.4-16.0); Lymphocytes # (A) 1.5 k/uL (1.0-4.8); Lymphocytes % (A) 12 %; MCH 32.9 pg (25.0-35.0); MCV 99.5 fL (80.0-100.0); Mean Platelet Volume 9.2; Monocytes # (A) 0.7 k/uL (0-1.0); Monocytes % (A) 6 %; Neutrophils # (A) 9.7 k/uL (1.3-7.7); Neutrophils % (A) 77 %; Platelet Count 159 k/uL (150-450); RBC 3.73 m/uL (3.80-5.40); RDW 13.8 % (11.5-15.5); WBC 12.6 k/uL (3.8-10.6)
[2020-06-10] MEDS: PANTOPRAZOLE 40 MG TABLET PO SCH (07:34)
--- NOTE | 2020-06-10 09:37 | P.DS ---
Providers Date of admission: 06/08/20 01:55 Expected date of discharge: 06/10/20 Attending physician: Chris Campbell Consults: 06/08/20 01:52 Consult Physician Routine Consulting Provider: Earl Juan Reason/Comments: Medical clearance. Your patient Do you want consulting provider notified?: Yes Primary care physician: Earl Juan - Discharge Diagnosis(es) (1) Closed left femoral fracture Current Visit: Yes Status: Acute (2) Fall Current Visit: Yes Status: Acute (3) S/P hip hemiarthroplasty Current Visit: Yes Status: Acute Hospital Course: This is an 79-year-old female who sustained a fracture of her left hip after a fall at [facility] on 06/08/2019. The patient presented for evaluation in the emergency room. After discussion and consideration the patient's legal guardian elects to proceed with left hip hemiarthroplasty. The patient is seen preoperatively by Dr. Campbell and medically cleared for surgery by internal medicine. Patient is admitted to [facility] on 06/08/2019 and left hip hemiarthroplasty is performed on 06/08/2019. The procedure is performed without complication or sequelae. The patient is doing well postoperatively. Labs and vital signs are stable on day of discharge. The patient was also evaluated by cardiology while admitted. On day of discharge patient's hip incision is healing well. There is minimal erythema. There is no drainage noted at this time. There is minimal soft tissue swelling to the hip and thigh. Dorsalis pedis pulse is 2+. Calf is soft and nontender to palpation. Neurovascular status to the left lower extremity is intact. Patient is discharged to [facility] in good condition. Please see med rec for accurate list of home medications. Patient Condition at Discharge: Fair Plan - Discharge Summary Discharge Rx Participant: Yes New Discharge Prescriptions: New Apixaban [Eliquis] 2.5 mg PO BID 35 Days #70 tab Sennosides [Senokot] 2 tab PO DAILY PRN #60 tablet PRN Reason: Constipation traMADol HCl [Ultram] 1 - 2 tab PO Q6H PRN #30 tab PRN Reason: Pain No Action Escitalopram [Lexapro] 5 mg PO DAILY Aspirin EC [Ecotrin Low Dose] 81 mg PO HS Ibuprofen [Motrin Ib] 400 mg PO DAILY PRN PRN Reason: Pain bisacodyL [Bisacodyl] 10 mg RECTAL DAILY PRN PRN Reason: Constipation Acetaminophen Tab [Tylenol Tab] 1,000 mg PO ONCE Sennosides [Senna] 17.2 mg PO BID LORazepam [Ativan] 0.5 mg PO BID traZODone HCL 50 mg PO HS@1999 QUEtiapine [SEROquel] 100 mg PO HS@1999 Lansoprazole [Prevacid] 15 mg PO DAILY@0700 Magnesium Hydroxide [Milk of Magnesia] 2,400 ml PO Q72H PRN PRN Reason: Constipation Fiber Lax 625 mg PO BID Discharge Medication List Acetaminophen Tab [Tylenol Tab] 1,000 mg PO ONCE 06/08/20 [History] Aspirin EC [Ecotrin Low Dose] 81 mg PO HS 06/08/20 [History] Escitalopram [Lexapro] 5 mg PO DAILY 06/08/20 [History] Fiber Lax 625 mg PO BID 06/08/20 [History] Ibuprofen [Motrin Ib] 400 mg PO DAILY PRN 06/08/20 [History] LORazepam [Ativan] 0.5 mg PO BID 06/08/20 [History] Lansoprazole [Prevacid] 15 mg PO DAILY@0700 06/08/20 [History] Magnesium Hydroxide [Milk of Magnesia] 2,400 ml PO Q72H PRN 06/08/20 [History] QUEtiapine [SEROquel] 100 mg PO HS@199906/08/20 [History] Sennosides [Senna] 17.2 mg PO BID 06/08/20 [History] bisacodyL [Bisacodyl] 10 mg RECTAL DAILY PRN 06/08/20 [History] traZODone HCL 50 mg PO HS@199906/08/20 [History] Apixaban [Eliquis] 2.5 mg PO BID 35 Days #70 tab 06/09/20 [Rx] Sennosides [Senokot] 2 tab PO DAILY PRN #60 tablet 06/09/20 [Rx] traMADol HCl [Ultram] 1 - 2 tab PO Q6H PRN #30 tab 06/09/20 [Rx] Follow up Appointment(s)/Referral(s): Earl Juan MD [Primary Care Provider] - 1-2 days Chris Campbell DO [Doctor of Osteopathic Medicine] - 06/23/20 9:30 am Activity/Diet/Wound Care/Special Instructions: Weightbearing as tolerated with walker. Leave dressing intact. Dressing may be removed by home care nurse or by patient in 10 days. May shower with dressing on. Continue hip dislocation precautions. Continue use of abductor pillow for 6 weeks while patient is resting or sleeping. Please take Eliquis twice daily for 35 days to prevent blood clots. Recommend use of compression stockings daily until follow up to help prevent swelling and blood clots. May remove at night before sleeping. Please follow-up with [facility] in 2 weeks and call with any questions or concerns, . Discharge Disposition: TRANSFER TO SNF/ECF
[2020-06-10] MEDS: SENNOSIDES 8.6 MG TAB PO SCH ×2 (10:32→20:34)
[2020-06-10] MEDS: APIXABAN 2.5 MG TABLET PO SCH ×2 (10:33→20:33)
[2020-06-10] MEDS: ESCITALOPRAM 5 MG TAB PO SCH (10:33)
--- NOTE | 2020-06-10 11:59 | CDI ---
Documentation Clarification Form Date: 06/09/2020 10:04:00 AM From: Viktoria Rice RN, CCDS Admit Date: 06/08/2020 01:55:00 AM Patient Name: Christina Multani Visit Number: [id number] ATTENTION: The Clinical Documentation Specialists (CDI) and [facility] Coding Staff appreciate your assistance in clarifying documentation. Please respond to the clarification below the line at the bottom and electronically sign. The CDI & [facility] Coding staff will review the response and follow-up if needed. Please note: Queries are made part of the Legal Health Record. If you have any questions, please contact the author of this message via ITS. Dr. Earl Juan Patient was noted to have a positive U/A and culture and started on Antibiotics 06/09. Please provide clinical significance. History/Risk Factors: Dementia, from snf, fall with left hip FX and hemiarthroplasty Clinical Indicators: 06/08 40 Vital Signs: Temp 97.8, HR 76, RR 20, B/P 144/93, Spo2 97% RA 06/08-06/10 WBC: 16.1/17.6/12.6 Neutrophils 13.9/16.7/9.7 06/08 Urinalysis: cloudy, trace protein, +1 ketones, trace blood, +nitrate, large leukocyte esterase, 11 RBC's, >182 WBC's, few bacteria, rare mucus 06/08 Urine Culture: + gram negative bacilli Treatment Antibiotics 06/08 Cefazolin 2gm IVPB q 8 hrs. x 2 doses 06/09 Ceftriaxone 1gm IVPB q 24 hrs. Please document the condition that these clinical indicators signify, whether Present on Admission, and cause if known: UTI -If due to catheter, device or implant, please document -Specify organism, if known -Identify location of infection (if known) Bladder, Kidney, Urethra Other, please specify Unable to determine Present on Admission: Yes No (Last Revision: February 2017) MTDD
--- NOTE | 2020-06-10 13:47 | PN ---
PROGRESS NOTE Christina Multani is status post hip fracture repair. This 79-year-old with hip surgery from a fall. She is pleasantly confused. She has a white count down to 12.6 today from 17.6. She is being treated for nasty UTI, awaiting microbiology report, it shows gram-negative bacilli. When we get a sensitivity back she will be able to be sent back for rehab at [facility]. She is pleasantly confused. PHYSICAL EXAM: CARDIOVASCULAR: S1, S2. LUNGS: Clear. GI: Soft. Blood pressure 108/76 and 95% on room air, temperature 97.9, pulse 78 to 84, respiratory rate 16 to 18. Discussed with the daughter last night about the UTI. We will continue with Rocephin until the sensitivities back tomorrow and then she can go back to the rehab center. Continue with PT, OT and rehab in the hospital. MMODL / IJN: [id number] /
[2020-06-10] MEDS: traZODone HCL 50 MG TAB PO SCH (20:33)
[2020-06-10] MEDS: QUEtiapine 100 MG TAB PO SCH (20:33)
[2020-06-10] MEDS: SENNOSIDES-DOCUSATE SODIUM 1 EACH TAB PO SCH (20:34)
[2020-06-11] MEDS ORDERED: NITROFURANTOIN MONOHYD/M-CRYST 100 MG CAP PO SCH (09:00)
--- NOTE | 2020-06-11 09:02 | PN ---
PROGRESS NOTE A 79-year-old white female. She has gram-negative bacilli UTI, status post hip surgery. She is comfortably confused. CARDIOVASCULAR: S1, S2. LUNGS: Clear. GI: Soft. HEMATOLOGY: Negative Homans. ASSESSMENT: 1. Escherichia coli urinary tract infection. 2. Dementia. She will be sent home with antibiotics possibly some nitrofurantoin or Levaquin. Levaquin is , she will be sent home on nitrofurantoin for 10 days for gram- negative bacilli for rehab status post hip surgery. Please see further orders. Discharge home in the morning. MMODL / IJN: [id number] /
[2020-06-11] MEDS: SENNOSIDES 8.6 MG TAB PO SCH (09:30)
[2020-06-11] MEDS: PANTOPRAZOLE 40 MG TABLET PO SCH (09:30)
[2020-06-11] MEDS: APIXABAN 2.5 MG TABLET PO SCH (09:30)
[2020-06-11] MEDS: ESCITALOPRAM 5 MG TAB PO SCH (09:50)
[2020-06-11] MEDS: LORazepam 0.5 MG TAB PO SCH (10:38)
[2020-06-11 12:44] VITALS: PULSE 80; RESP 18; TEMP 98
[2020-06-11 12:46] VITALS: BP 178/91
[2020-06-11] MEDS ORDERED: amLODIPine 5 MG TAB PO STA (13:39)
== END 2020-06-11 18:28 | DRG 522 ==
LOC: EC 00:39 → 4SSUR 01:55 → EEVIPCON 01:55 → 4SSUR 05:00
PROVIDERS: ADMIT Orthopaedic Surgery; ATTEND Orthopaedic Surgery
PROC: 4B02XSZ Measurement of Cardiac Pacemaker, External Approach (ICD-10-PCS; 2020-06-08)
PROC: 0SRS01A Replacement of Left Hip Joint, Femoral Surface with Metal Synthetic Substitute, Uncemented, Open Approach (ICD-10-PCS; principal; 2020-06-08 11:50)
DX: S72.012A Unspecified intracapsular fracture of left femur, initial encounter for closed fracture (principal); I44.2 Atrioventricular block, complete; R64 Cachexia; N39.0 Urinary tract infection, site not specified; F03.90 Unspecified dementia, unspecified severity, without behavioral disturbance, psychotic disturbance, mood disturbance, and anxiety; J44.9 Chronic obstructive pulmonary disease, unspecified; B96.20 Unspecified Escherichia coli [E. coli] as the cause of diseases classified elsewhere; E78.5 Hyperlipidemia, unspecified; R00.1 Bradycardia, unspecified; Z68.27 Body mass index [BMI] 27.0-27.9, adult; Z79.82 Long term (current) use of aspirin; Z79.899 Other long term (current) drug therapy; Z95.2 Presence of prosthetic heart valve; Z95.0 Presence of cardiac pacemaker; Z86.718 Personal history of other venous thrombosis and embolism; Z86.711 Personal history of pulmonary embolism; Z86.73 Personal history of transient ischemic attack (TIA), and cerebral infarction without residual deficits; W19.XXXA Unspecified fall, initial encounter; Y92.129 Unspecified place in nursing home as the place of occurrence of the external cause
CPT/HCPCS: 36415; 71045; 73501; 73502; 80048; 81001; 83735; 84484; 85025; 85610; 85730; 87077; 87086; 87186; 88305; 88311; 93005; 93308; 96372; 99284

== ENCOUNTER 2020-07-04 13:08 | Emergency (ER) | payer MEDICARE, OTHER ==
[2020-07-04 13:22] VITALS: BP 102/63; PULSE 88; RESP 18; TEMP 97.6
[2020-07-04] MEDS ORDERED: TOPICAL SKIN ADHESIVE 1 EACH AMP TOPICAL ONE (13:52)
--- NOTE | 2020-07-04 13:52 | ED ---
Head Injury HPI - General Chief complaint: Head Injury Stated complaint: Fall Time Seen by Provider: 07/04/20 13:19 Source: EMS Mode of arrival: EMS Limitations: altered mental status - History of Present Illness Initial comments: Christina is a pleasantly demented 79-year-old female who presents the ER via ambulance from her [facility] for evaluation of a head injury after a fall forward out of the wheelchair. History is provided by EMS as the patient is minimally verbal and completely disoriented secondary to advanced dementia. Patient is on Eliquis and apparently fell forward out of her wheelchair resulting in a laceration to her forehead. - Related Data Home Medications Medication Instructions Recorded Confirmed Aspirin EC [Ecotrin Low Dose] 81 mg PO HS 06/08/20 07/04/20 Escitalopram [Lexapro] 5 mg PO DAILY 06/08/20 07/04/20 Magnesium Hydroxide [Milk of 2,400 ml PO Q72H PRN 06/08/20 07/04/20 Magnesia] QUEtiapine [SEROquel] 100 mg PO HS 06/08/20 07/04/20 Sennosides [Senna] 17.2 mg PO BID 06/08/20 07/04/20 bisacodyL [Bisacodyl] 10 mg RECTAL DAILY PRN 06/08/20 07/04/20 traZODone HCL 50 mg PO HS 06/08/20 07/04/20 Acetaminophen Tab [Tylenol] 650 mg PO BID 07/04/20 07/04/20 Atorvastatin [Lipitor] 20 mg PO HS 07/04/20 07/04/20 Calcium Polycarbophil [Fiber-Lax] 625 mg PO BID 07/04/20 07/04/20 Healthshake 1 can PO TID-W/MEALS 07/04/20 07/04/20 Hydration I.V. Packet 1 packet PO HS 07/04/20 07/04/20 Ibuprofen [Motrin] 400 mg PO BID PRN 07/04/20 07/04/20 Pantoprazole Sodium [Protonix] 40 mg PO DAILY 07/04/20 07/04/20 Probiotic Supplement 1 packet PO DAILY 07/04/20 07/04/20 Previous Rx's Medication Instructions Recorded Apixaban [Eliquis] 2.5 mg PO BID 35 Days #70 tab 06/09/20 Sennosides [Senokot] 2 tab PO DAILY PRN #60 tablet 06/09/20 LORazepam [Ativan] 0.5 mg PO BID #6 tab 06/10/20 Allergies/Adverse reactions: Allergies Allergy/AdvReac Type Severity Reaction Status Date / Time No Known Allergies Allergy Verified 07/04/20 13:46 Review of Systems ROS Statement: Those systems with pertinent positive or pertinent negative responses have been documented in the HPI. ROS Other: All systems not noted in ROS Statement are negative. Past Medical History Past Medical History: COPD, Dementia, Deep Vein Thrombosis (DVT), Hyperlipidemia, Pulmonary Embolus (PE), Renal Disease Additional Past Medical History / Comment(s): tested positive for covid at [facility], never had symptoms. History of Any Multi-Drug Resistant Organisms: None Reported Past Surgical History: Pacemaker Additional Past Surgical History / Comment(s): MITRAL VALVE Repair, Past Anesthesia/Blood Transfusion Reactions: No Reported Reaction Type of Cardiac Device: Permanent Pacemaker Device Placement Date:: daughter is guessing "about 4 years ago" Past Psychological History: No Psychological Hx Reported Smoking Status: Never smoker Past Alcohol Use History: None Reported Past Drug Use History: None Reported General Exam - General Exam Comments Initial Comments: Physical Exam GENERAL: Demented patient in no acute distress HENT: Normocephalic 1cm laceration on lateral right brow bridge, no active bleeding, no significant bruising EYES: PERRL, EOMI PULMONARY: Unlabored respirations. CARDIOVASCULAR: RRR Warm and well perfused extremities ABDOMEN: Non-distended SKIN: Laceration as noted : Deferred NEUROLOGIC: Awake, non-verbal MUSCULOSKELETAL: Decreased ROM L hip secondary to recent surgery Feet in air boots PSYCHIATRIC: Unable to assess secondary to dementia Limitations: altered mental status Course Vital Signs 07/04/20 13:12 Temperature 97.6 F Pulse Rate 88 Respiratory 18 Rate Blood Pressure 102/63 O2 Sat by Pulse 93 L Oximetry Procedures - Laceration Laceration #1 Consent Obtained: verbal consent Indication: laceration Site: face Size (cm): 1 Description: linear Depth: simple, single layer Type of Sutures: other (Skin glue) Patient Tolerated Procedure: well, no complications Medical Decision Making - Medical Decision Making Patient was seen and evaluated history is obtained from EMS and daughter bedside CT of the head and cervical spine were obtained and resulted with no acute findings Laceration on the right lateral brow. She was repaired with skin glue patient tolerated this well Patient be discharged back to [facility] Disposition Clinical Impression: Closed head injury, Fall Disposition: HOME SELF-CARE Condition: Stable Instructions (If sedation given, give patient instructions): Fall Prevention for Older Adults (ED) Is patient prescribed a controlled substance at d/c from ED?: No Referrals: Regis Medina MD [Primary Care Provider] - 1-2 days
--- NOTE | 2020-07-04 13:53 | CT ---
EXAMINATION TYPE: CT brain lawrence alvarado con DATE OF EXAM: 07/04/2020 COMPARISON: None HISTORY: Fall CT DLP: 1255.[address] of the brain was performed. The ventricles, basal cisterns and sulci overlying the cerebral convexities demonstrate moderate enla rgement. There is no evidence for intracranial hemorrhage or sulcal effacement. There is decreased attenuatio n about the periventricular white matter and deep white matter of both cerebral hemispheres, compatib le with chronic small vessel ischemia. No mass effects are seen. If symptoms persist consider MRI. Osseous calvarium is intact. IMPRESSION: 1. Age related atrophic and chronic small vessel ischemic change without acute intracranial process seen at this time. CT Cervical Spine: Unenhanced CT of the cervical spine was performed with bone and soft tissue window settings submitted . Coronal and sagittal reconstruction is obtained. There is normal alignment and prevertebral soft tissues. No evidence for acute cervical fracture . Scattered degenerative disc disease and spondylosis. Biapical scarring. IMPRESSION: 1. No evidence for acute fracture or subluxation of the cervical spine.
== END 2020-07-04 15:07 | disposition home or self-care (01) ==
LOC: EC 13:08
DX: S01.81XA Laceration without foreign body of other part of head, initial encounter (principal); E78.5 Hyperlipidemia, unspecified; Z79.82 Long term (current) use of aspirin; Z79.899 Other long term (current) drug therapy; F03.90 Unspecified dementia, unspecified severity, without behavioral disturbance, psychotic disturbance, mood disturbance, and anxiety; Z79.01 Long term (current) use of anticoagulants; Z86.718 Personal history of other venous thrombosis and embolism; Z86.711 Personal history of pulmonary embolism; Z95.0 Presence of cardiac pacemaker; V00.811A Fall from moving wheelchair (powered), initial encounter; Y92.129 Unspecified place in nursing home as the place of occurrence of the external cause
CPT/HCPCS: 12011; 70450; 72125; 99284